=== PATIENT | male | born 1935 | race Caucasian/White ===

== ENCOUNTER 2016-06-26 15:26 | Outpatient (CLI) | payer OTHER ==
[~2016-06-26 15:26] MED LIST: ALBUTEROL SUL0.083 % IN; ALLOPURINOL100 MG PO; ASPIRIN EC LOW81 MG PO; CALAN SR240 MG PO; CARDIZEM C2 PO; CEFPODOXIME PR200 MG PO; CEFUROXIME AXE500 MG PO; COMBIVENT RESPIMAT IN; FUROSEMIDE40 MG PO; IPRATROPIUM BROMIDE/ IN; KLOR-CON M2020 MEQ PO; LASIX20 MG PO; LOSARTAN POTASS50 MG PO; PROAIR HFA IN; SMZ-TMP DS1 TAB PO; TOPROL XL50 MG PO
--- NOTE | 2016-06-26 16:55 | DIAGNOSTIC IMAGING REPORT ---
PROCEDURE: XR LUMBAR SPINE 5 VIEWS INDICATION: PARESTHESIA OF FOOT TECHNIQUE: Five views. COMPARISON: None. 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 IMPRESSION: 1. Grade 2 spondylolisthesis L5-S1 with bilateral pars defects.
== END 2016-06-26 23:00 ==
LOC: XR SRH 15:26
DX: M43.17 Spondylolisthesis, lumbosacral region (principal)